=== PATIENT | female | born 1965 | race Caucasian/White ===

== ENCOUNTER 2024-02-22 16:09 | Emergency (ER) | payer OTHER ==
--- OUTSIDE RECORDS SUMMARY | 2024-02-22 16:12 | XMS REPORT | Continuity of Care Document ---
Author Name Unknown Address [address] [place] [address] thconnect Address [address] [place] [address] [address] [place] [address] Care Team Providers Care [employer] Justice Name Role Phone Unavailable Unavailable Unavailable Encounters Start Date/Time End Date/Time Encounter Type Admission Type Attending Clinicians Care Facility Care Department Encounter ID Source 2022-06-17 11:32:02 2022-06-17 11:32:02 Outpatient [facility] [id number]
[2024-02-22 17:13] LABS: Absolute Lymphocytes (CBC) 1.1 K/uL (0.7-4.9); Absolute Monocytes 0.7 K/uL (0.1-1.3); Absolute Neutrophil 16.1 K/uL (1.8-8.0); Basophils % 0.1 % (0-1.3); Hematocrit 40.3 % (36.0-45.0); Hemoglobin 13.6 g/dL (12.0-15.0); Lymphocytes % 6.3 % (15.3-44.8); MCH 30.7 pg (27.0-35.0); MCHC 33.8 g/dL (32.0-36.0); MCV 90.9 fL (80-100); MPV 8.2 fL (7.6-11.3); Monocytes % 3.9 % (3.3-12.3); Neutrophils % 89.7 % (41.7-73.7); Platelets 343 thou/uL (152-406); RBC Red Blood Cell Count 4.43 M/uL (3.86-4.86); Red Cell Distribution Width 14.4 % (12.1-15.2)
[2024-02-22 17:19] LABS: Anion Gap 12.1 mEq/L (5.0-15.0); Potassium 3.1 mEq/L (3.5-5.1); Troponin High Sensitivity 9.7 pg/mL (<58.9)
[2024-02-22 17:37] LABS: Blood Morphology Comment NOT SEEN (NOT SEEN); Platelet Estimate ADEQ; White Blood Cell Scan OK (OK)
[2024-02-22] MEDS ORDERED: ALBUTEROL 2.5 MG/3 ML NEB SOL ONE (17:59)
--- NOTE | 2024-02-22 18:37 | RAD REPORT ---
EXAM DESCRIPTION: CT - Chest For Pe Angio - 02/22/2024 5:46 pm CLINICAL HISTORY: shortness of breath, tachycardia COMPARISON: No comparisons TECHNIQUE: Thin axial CT images of the chest were obtained following administration of 100 mL Isovue 370 IV contrast. Multiplanar reconstructions, and maximum intensity projection reconstructions were generated and reviewed. Exam utilizes a protocol for optimal evaluation of pulmonary arterial tree. All CT scans are performed using dose optimization technique as appropriate and may include automated exposure control or mA/KV adjustment according to patient size. FINDINGS: Pulmonary arteries are normal. No emboli or other suspicious finding. No acute or signific ant aorta findings. No mass or infiltrate in the lung parenchyma. No pleural thickening or pleural effusion. No pneumotho rax. No abnormal mediastinal or hilar masses or lymphadenopathy seen. No chest wall mass or abnormal axill iary lymphadenopathy. IMPRESSION: No evidence of acute central pulmonary emboli. Negative CT scan of the chest for other significant findings.
--- NOTE | 2024-02-22 18:54 | EDPHYS ---
Physician Documentation [facility] Name: Tanya Theodore Age: 58 yrs Sex: Female : 1965 Arrival Date: 02/22/2024 Time: 16:09 Bed 20 Private MD: ED Physician Jeremy Gates HPI: 02/21 16:31 This 58 yrs old Female presents to ER via Ambulatory with complaints of COVID positive, ms3 Shortness Of Breath. 16:31 58-year-old female with past medical history of ADD/ADHD, back spasm presents to the [facility] emergency department shortness of breath that began yesterday. Patient states she took a home COVID test that was positive. Patient was called and cough medication, steroids, alprazolam by her primary care physician, Dr. Clark. Patient denies any alleviating or inciting factors. Patient endorses fatigue. Historical: - Allergies: 16:26 PENICILLINS; as6 - PMHx: 16:26 ADD/ADHD; back spasms; as6 - PSHx: 16:26 None; as6 - Immunization history:: Adult Immunizations not up to date. - Infectious Disease History:: Denies. - Social history:: Smoking status: Patient denies any tobacco usage or history of. ROS: 16:31 Cardiovascular: Negative for chest pain, and palpitations. ms3 16:31 Abdomen/GI: Negative for abdominal pain, nausea, vomiting, diarrhea, and constipation, MS/Extremity: Negative for injury and deformity, Skin: Negative for injury, rash, and discoloration, 16:31 Constitutional: Positive for body aches, 16:31 Respiratory: Positive for shortness of breath, Exam: 16:31 Constitutional: This is a well developed, well nourished patient who is awake, alert, ms3 and in no acute distress. Head/Face: Normocephalic, atraumatic. Respiratory: Lungs have equal breath sounds bilaterally, clear to auscultation and percussion. No rales, rhonchi or wheezes noted. No increased work of breathing, no retractions or nasal flaring. Abdomen/GI: Soft, non-tender, with normal bowel sounds. No distension or tympany. No guarding or rebound. No evidence of tenderness throughout. Skin: Warm, dry with normal turgor. Normal color with no rashes, no lesions, and no evidence of cellulitis. 16:31 Cardiovascular: Rate: tachycardic, Rhythm: regular, Pulses: no pulse deficits are appreciated, 17:04 ECG was reviewed by the Attending Physician. ms3 Vital Signs: 16:25 BP 127 / 91; Pulse 116; Resp 18; Temp 98.1; Pulse Ox 96% ; Weight 61.23 kg; Height 5 as6 ft. 4 in. ; Pain 7/10; 17:28 BP 129 / 82; Pulse 94; Resp 17; Pulse Ox 98% on R/A; rs5 19:01 BP 133 / 81; Pulse 91; Resp 17; Pulse Ox 99% on R/A; rs5 16:25 Body Mass Index 23.17 (61.23 kg, 162.56 cm) as6 16:25 Pain Scale: Adult as6 MDM: 16:24 Patient medically screened. ms3 16:31 Differential diagnosis: Anxiety Reaction Myocardial Infarction pneumonia, pulmonary ms3 edema. 18:54 Data reviewed: vital signs, nurses notes, lab test result(s), EKG, radiologic studies, ms3 and as a result, I will discharge patient. I considered the following discharge prescriptions or medication management in the emergency department Medications were administered in the Emergency Department. See MAR. Independent interpretation of the following test(s) in the Emergency Department EKG: See my EKG interpretation above oral and maxillofacial surgery resident: rate is 92 beats/min, Rhythm is normal sinus rhythm, regular, with no ectopy, Interpretation: normal rate, normal rhythm. Counseling: I had a detailed discussion with the patient and/or guardian regarding the historical points, exam findings, and any diagnostic results supporting the discharge/admit diagnosis, lab results, radiology results, the need for outpatient follow up, to return to the emergency department if symptoms worsen or persist or if there are any questions or concerns that arise at home. Special discussion: Based on the patient's history, exam, and Dx evaluation, there is no indication for emergent intervention or inpatient Tx. It is understood by the patient/guardian that if the Sx's persist or worsen they need to return immediately for re-evaluation. ED course: Discussed labs, imaging with patient and her father. Patient states she is improved after albuterol breathing treatment. Patient given prescription for albuterol inhaler. CT PE does not reveal pulmonary embolism or pneumonia. Labs reassuring. Patient given 40 mill equivalents potassium for hypokalemia. Patient to follow-up with her primary care physician in 2 to 3 days. Patient understands and agrees with plan. All questions were answered. Return precautions discussed include worsening symptoms, or any other concerns. 02/21 16:31 Order name: Basic Metabolic Panel; Complete Time: 17:57 ms3 02/21 16:31 Order name: CBC with Diff; Complete Time: 17:57 ms3 02/21 16:31 Order name: Troponin HS; Complete Time: 17:57 ms3 12 17:37 Order name: CBC Smear Scan; Complete Time: 17:57 EDMS 06 16:31 Order name: CT Chest For PE Angio; Complete Time: 18:50 ms3 02/21 16:31 Order name: EKG; Complete Time: 16:31 ms3 02/21 16:31 Order name: Cardiac monitoring; Complete Time: 16:52 ms3 02/21 16:31 Order name: EKG - Nurse/Tech; Complete Time: 16:52 ms3 02/21 16:31 Order name: IV Saline Lock; Complete Time: 16:52 ms3 02/21 16:31 Order name: Labs collected and sent; Complete Time: 16:52 ms3 02/21 16:31 Order name: O2 Per Protocol; Complete Time: 16:52 ms3 02/21 16:31 Order name: O2 Sat Monitoring; Complete Time: 16:52 ms3 EC:04 Rate is 108 beats/min. Rhythm is regular. QRS Nicholson is Normal. OH interval is normal. ms3 QRS interval is normal. Clinical impression: Sinus tachycardia. Interpreted by me. Reviewed by me. Administered Medications: 18:00 Drug: Albuterol Inhalation 2.5 mg Inhalation every 20 minutes x3 Route: Inhalation; rs5 18:20 Drug: Albuterol Inhalation 2.5 mg Inhalation every 20 minutes x3 Route: Inhalation; rs5 18:56 Drug: Albuterol Inhalation 2.5 mg Inhalation every 20 minutes x3 Route: Inhalation; rs5 19:02 Follow up: Response: No adverse reaction rs5 19:09 Drug: Potassium Chloride PO Liquid 40 mEq PO once Route: PO; rs5 Disposition Summary: 02/22/24 18:54 Discharge Ordered Notes: Location: Home ms3 Condition: Stable ms3 Diagnosis - SARS-associated coronavirus as the cause of diseases classified elsewhere ms3 - Shortness of breath ms3 Followup: ms3 - With: Private Physician - When: 2 - 3 days - Reason: Recheck today's complaints Discharge Instructions: - Discharge Summary Sheet ms3 - COVID-19 ms3 Forms: - Medication Reconciliation Form ms3 - Antibiotic Education ms3 - Prescription Opioid Use ms3 - Patient Portal Instructions ms3 - Leadership Thank You Letter ms3 Prescriptions: - albuterol sulfate 90 mcg/actuation Inhalation HFA Aerosol Inhaler - inhale 2 inhalation INHALATION route every 2 hours as needed for bronchospasm; ms3 administer via ventilator; 1 unit; Refills: 0, Product Selection Permitted Signatures: Dispatcher [employer] EDMS Jeremy Gates DO DO ms3 Jarad Valderrama RN RN as6 Tarun Cortes RN RN rs5 Corrections: (The following items were deleted from the chart) 16:27 16:26 Allergies: No Known Allergies; as6 as6
--- NOTE | 2024-02-22 18:54 | ER ---
Nurse's Notes [facility] Name: Tanya Theodore Age: 58 yrs Sex: Female : 1965 Arrival Date: 02/22/2024 Time: 16:09 Bed 20 Private MD: Diagnosis: SARS-associated coronavirus as the cause of diseases classified elsewhere;Shortness of breath Presentation: 02/21 16:25 Chief complaint: Patient states: pt tested positive for COVID yesterday and is having as6 difficulty breathing. Coronavirus screen: At this time, the client does not indicate any symptoms associated with coronavirus-19. Ebola Screen: No symptoms or risks identified at this time. Initial Sepsis Screen: Does the patient meet any 2 criteria? No. Patient's initial sepsis screen is negative. Does the patient have a suspected source of infection? No. Patient's initial sepsis screen is negative. Risk Assessment: Do you want to hurt yourself or someone else? Patient reports no desire to harm self or others. Onset of symptoms was February 22, 2024. 16:25 Method Of Arrival: Ambulatory as6 16:25 Acuity: BEATA 3 as6 Triage Assessment: 16:20 General: Appears in no apparent distress. uncomfortable, Behavior is calm, cooperative. rs5 Respiratory: Reports. Respiratory: Reports shortness of breath cough that is Onset: The symptoms/episode began/occurred yesterday, the patient has mild shortness of breath. Historical: - Allergies: 16:26 PENICILLINS; as6 - PMHx: 16:26 ADD/ADHD; back spasms; as6 - PSHx: 16:26 None; as6 - Immunization history:: Adult Immunizations not up to date. - Infectious Disease History:: Denies. - Social history:: Smoking status: Patient denies any tobacco usage or history of. Screenin:20 [facility] ED Fall Risk Assessment (Adult) History of falling in the last 3 months, rs5 including since admission No falls in past 3 months (0 pts) Confusion or Disorientation No (0 pts) Intoxicated or Sedated No (0 pts) Impaired Gait No (0 pts) Mobility Assist Device Used No (0 pt) Altered Elimination No (0 pt) Score/Fall Risk Level 0 - 2 = Low Risk Oriented to surroundings, Maintained a safe environment. Abuse screen: Denies threats or abuse. Nutritional screening: No deficits noted. Tuberculosis screening: No symptoms or risk factors identified. Assessment: 16:20 General: Appears in no apparent distress. uncomfortable, Behavior is calm, cooperative. rs5 Pain: Complains of pain in chest Pain currently is 2 out of 10 on a pain scale. Quality of pain is described as aching, Aggravated by coughing. Neuro: Level of Consciousness is awake, alert, obeys commands, Oriented to person, place, time, situation. Cardiovascular: Patient's skin is warm and dry. Rhythm is regular. Respiratory: Reports shortness of breath cough that is Airway is patent Respiratory effort is even, unlabored, Respiratory pattern is regular, symmetrical, GI: Abdomen is round non-distended, Abd is soft and non tender X 4 quads. : No signs and/or symptoms were reported regarding the genitourinary system. EENT: No signs and/or symptoms were reported regarding the EENT system. Derm: Skin is intact, Skin is pink, warm \T\ dry. Musculoskeletal: Range of motion: intact in all extremities. 17:28 Reassessment: No changes from previously documented assessment. rs5 18:38 Reassessment: Patient and/or family updated on plan of care and expected duration. Pain rs5 level reassessed. Patient is alert, oriented x 3, equal unlabored respirations, skin warm/dry/pink. Patient states feeling better. Vital Signs: 16:25 BP 127 / 91; Pulse 116; Resp 18; Temp 98.1; Pulse Ox 96% ; Weight 61.23 kg; Height 5 as6 ft. 4 in. ; Pain 7/10; 17:28 BP 129 / 82; Pulse 94; Resp 17; Pulse Ox 98% on R/A; rs5 19:01 BP 133 / 81; Pulse 91; Resp 17; Pulse Ox 99% on R/A; rs5 16:25 Body Mass Index 23.17 (61.23 kg, 162.56 cm) as6 16:25 Pain Scale: Adult as6 ED Course: 16:13 Patient arrived in ED. im 16:17 Jeremy Gates DO is Attending Physician. ms3 16:20 Patient has correct armband on for positive identification. Placed in gown. Bed in low rs5 position. Call light in reach. Side rails up X2. 16:20 No provider procedures requiring assistance completed. rs5 16:25 Inserted saline lock: 20 gauge in right antecubital area, using aseptic technique. rs5 Blood collected. 16:26 Triage completed. as6 16:27 Arm band placed on. as6 17:26 Tarun Cortes, RN is Primary Nurse. rs5 17:48 CT Chest For PE Angio In Process Unspecified. EDMS 19:10 Provided Education on: prescription meds. tm6 19:10 IV discontinued, intact, bleeding controlled, No redness/swelling at site. Pressure tm6 dressing applied. Administered Medications: 18:00 Drug: Albuterol Inhalation 2.5 mg Inhalation every 20 minutes x3 Route: Inhalation; rs5 18:20 Drug: Albuterol Inhalation 2.5 mg Inhalation every 20 minutes x3 Route: Inhalation; rs5 18:56 Drug: Albuterol Inhalation 2.5 mg Inhalation every 20 minutes x3 Route: Inhalation; rs5 19:02 Follow up: Response: No adverse reaction rs5 19:09 Drug: Potassium Chloride PO Liquid 40 mEq PO once Route: PO; rs5 Medication: 17:29 VIS not applicable for this client. rs5 Outcome: 18:54 Discharge ordered by MD. ms3 19:09 Discharged to home ambulatory, tm6 19:09 Condition: stable 19:09 Discharge instructions given to patient, Instructed on discharge instructions, follow up and referral plans. medication usage, Demonstrated understanding of instructions, follow-up care, medications, Prescriptions given X 1, 19:10 Patient left the ED. tm6 Signatures: Dispatcher [employer] EDTX Jeremy Gates DO DO ms3 Jarad Valderrama RN RN as6 Tarun Cortes, RN RN rs5 Johanny Guo Tawney, RN RN tm6 Corrections: (The following items were deleted from the chart) 16:27 16:26 Allergies: No Known Allergies; as6 as6 17:30 16:20 Respiratory: Airway is patent Respiratory effort is even, unlabored, Respiratory rs5 pattern is regular, symmetrical, rs5
[2024-02-22] MEDS ORDERED: POTASSIUM CL SA 10 MEQ TAB PO ONE (19:06)
[2024-02-22 19:26] VITALS: BP 133/81; TEMP 98.1; O2SAT 99
--- NOTE | 2024-02-27 15:11 | EKG ---
Test Date: 2024-02-22 Test Time: 16:49:08 Circus Rider: BARBARA MEASUREMENT RESULTS: Intervals: Rate: 108 AR: 166 QRSD: 82 QT: 358 QTc: 479 Hiram: P: 115 AR: 166 QRS: 61 T: 28 INTERPRETIVE STATEMENTS: Sinus tachycardia Septal infarct, age undetermined Abnormal ECG Compared to ECG 08/16/2006 15:33:24 ST (T wave) deviation no longer present Possible ischemia no longer present Myocardial infarct finding still present Electronically Signed On 02-27-24 14:56:58 CDT by Mario Brar
== END 2024-02-22 19:10 | disposition home or self-care (01) ==
LOC: ER 16:09
DX: U07.1 COVID-19 (principal)
CPT/HCPCS: 93005; 85025; 80048; 36415; 84484; 71275; 99284; Q9967; J7613

== ENCOUNTER 2024-02-23 21:08 | Emergency (ER) | payer OTHER ==
--- OUTSIDE RECORDS SUMMARY | 2024-02-23 21:11 | XMS REPORT | Continuity of Care Document ---
Author Name Unknown Address [address] [place] [address] thconnect Address [address] [place] [address] [address] [place] [address] Care Team Providers Care Biology Lecturer Name Role Phone Unavailable Unavailable Unavailable Encounters Start Date/Time End Date/Time Encounter Type Admission Type Attending Clinicians Care Facility Care Department Encounter ID Source 2022-06-17 11:32:02 2022-06-17 11:32:02 Outpatient [facility] [id number]
--- NOTE | 2024-02-23 22:17 | RAD REPORT ---
EXAM DESCRIPTION: [place] Single View02/23/2024 9:40 pm CLINICAL HISTORY: CHEST PAIN COMPARISON: No comparisons TECHNIQUE: Portable AP view of the chest. FINDINGS: The lungs are clear. No pneumothorax or effusion. The cardiomediastinal contours are unre markable. IMPRESSION: No acute cardiopulmonary process.
[2024-02-23] MEDS ORDERED: PROMETHAZINE 25 MG TABLET ONE (22:24)
[2024-02-23] MEDS ORDERED: GUAIFENESIN/DM 5 ML UCUP ONE (22:25)
[2024-02-23] MEDS ORDERED: HYDROCODONE/APAP 10/325 TAB ONE (22:25)
[2024-02-23] MEDS ORDERED: BENZONATATE 100 MG CAP PO ONE (22:25)
[2024-02-23] MEDS ORDERED: ALBUTEROL 2.5 MG/3 ML NEB SOL ONE (22:30)
[2024-02-23] MEDS ORDERED: IPRATROPIUM BROM 0.5MG/2.5ML ONE (22:30)
[2024-02-23 22:35] LABS: Absolute Lymphocytes (CBC) 2.3 K/uL (0.7-4.9); Absolute Monocytes 1.1 K/uL (0.1-1.3); Absolute Neutrophil 11.2 K/uL (1.8-8.0); Basophils % 0.3 % (0-1.3); Eosinophils % 0.1 % (0-4.4); Hematocrit 38.4 % (36.0-45.0); Hemoglobin 12.8 g/dL (12.0-15.0); Lymphocytes % 15.4 % (15.3-44.8); MCH 30.7 pg (27.0-35.0); MCHC 33.4 g/dL (32.0-36.0); MCV 91.8 fL (80-100); Monocytes % 7.7 % (3.3-12.3); Neutrophils % 76.5 % (41.7-73.7); Nucleated Red Blood Cells % 0.1 % (0-0); Platelets 315 thou/uL (152-406); RBC Red Blood Cell Count 4.19 M/uL (3.86-4.86); Red Cell Distribution Width 14.3 % (12.1-15.2)
[2024-02-23 22:49] LABS: ALT/SGPT 108 U/L (13-56); AST/SGOT 171 U/L (15-37); Albumin 3.2 g/dL (3.4-5.0); Alkaline Phosphatase 73 U/L (45-117); Anion Gap 11.6 mEq/L (5.0-15.0); BUN Blood Urea Nitrogen 18 mg/dL (7-18); Bicarbonate 26 mEq/L (21-32); Bilirubin Total 0.4 mg/dL (0.2-1.0); Globulin 3.2 g/dL (2.3-3.5); Glomerular Filtration Rate 86 ml/min (=/>90); Glucose Level 93 mg/dL (74-106); Potassium 3.6 mEq/L (3.5-5.1); Protein, Total 6.4 g/dL (6.4-8.2); Sodium Level 142 mEq/L (136-145); Troponin High Sensitivity 8.9 pg/mL (<58.9)
[2024-02-23 22:58] LABS: Bilirubin Direct < 0.2 mg/dL (0-0.2); Bilirubin Indirect, Calculated 0.2 mg/dL (0.2-0.8)
--- NOTE | 2024-02-24 00:12 | EDPHYS ---
Physician Documentation [facility] Name: Tanya Theodore Age: 58 yrs Sex: Female : 1965 Arrival Date: 02/23/2024 Time: 21:08 Bed 14 Private MD: ED Physician Franky Montero HPI: 02/22 21:16 This 58 yrs old Female presents to ER via Unassigned with complaints of COVID sp4 POSTIVE, Breathing Difficulty, Fever. 02/23 04:19 58 year old female presents with complaint of chest discomfort, pleuritic chest pain sp4 back pain shortness of breath cough. Patient was here yesterday and was evaluated for acute COVID-related respiratory illness. Patient was prescribed as needed albuterol she also reports her primary physician prescribed a Z-Itz and p.o. Medrol Dosepak.. 04:22 CT report review from 02/22/2024 - EXAM DESCRIPTION: CT - Chest For Pe Angio - sp4 02/22/2024 5:46 pm CLINICAL HISTORY: shortness of breath, tachycardia COMPARISON: No comparisons TECHNIQUE: Thin axial CT images of the chest were obtained following administration of 100 mL Isovue 370 IV contrast. Multiplanar reconstructions, and maximum intensity projection reconstructions were generated and reviewed. Exam utilizes a protocol for optimal evaluation of pulmonary arterial tree. All CT scans are performed using dose optimization technique as appropriate and may include automated exposure control or mA/KV adjustment according to patient size. FINDINGS: Pulmonary arteries are normal. No emboli or other suspicious finding. No acute or significant aorta findings. No mass or infiltrate in the lung parenchyma. No pleural thickening or pleural effusion. No pneumothorax. No abnormal mediastinal or hilar masses or lymphadenopathy seen. No chest wall mass or abnormal axilliary lymphadenopathy. IMPRESSION: No evidence of acute central pulmonary emboli. Negative CT scan of the chest for other significant findings. Signed By: Nahum Woods Signed AT: 02/22/24 . Historical: - Allergies: 02/22 21:30 PENICILLINS; as6 - PMHx: 21:30 ADD/ADHD; back spasms; as6 - Immunization history:: Adult Immunizations up to date. - Infectious Disease History:: Denies. - Social history:: Smoking status: Patient denies any tobacco usage or history of. - Family history:: not pertinent. ROS: 02/23 04:23 Constitutional: Negative for fever, chills, and weight loss, Positive for Dyspnea, sp4 cough, pleuritic chest pain All other systems are negative, Exam: 04:23 Constitutional: This is a well developed, well nourished patient who is awake, alert, sp4 and in no acute distress. Head/Face: Normocephalic, atraumatic. Eyes: Pupils equal round and reactive to light, extra-ocular motions intact. Lids and lashes normal. Conjunctiva and sclera are not injected. Cornea within normal limits. Periorbital areas with no swelling, redness, or edema. ENT: Nares patent. No nasal discharge, no septal abnormalities noted. Tympanic membranes are normal and external auditory canals are clear. Oropharynx with no redness, swelling, or masses, exudates, or evidence of obstruction, uvula midline. Mucous membranes moist. Neck: Trachea midline, no thyromegaly or masses palpated, and no cervical lymphadenopathy. Supple, full range of motion without nuchal rigidity, or vertebral point tenderness. Chest/axilla: Normal chest wall appearance and motion. Nontender with no deformity. No lesions are appreciated. Cardiovascular: Regular rate and rhythm with a normal S1 and S2. No gallops, murmurs, or rubs. Normal PMI, no JVD. No pulse deficits. Respiratory: Lungs have equal breath sounds bilaterally, clear to auscultation and percussion. No rales, rhonchi or wheezes noted. No increased work of breathing, no retractions or nasal flaring. Abdomen/GI: Soft, with normal bowel sounds. No distension or tympany. No guarding or rebound. No evidence of tenderness throughout. Back: No spinal tenderness. No costovertebral tenderness. Skin: Warm, dry with normal turgor. Normal color with no rashes, no lesions, and no evidence of cellulitis. MS/ Extremity: Pulses equal, no cyanosis. Neurovascular intact. Full, normal range of motion. Neuro: Awake and alert, GCS 15, oriented to person, place, time, and situation. Cranial nerves II-XII grossly intact. Motor strength 5/5 in all extremities. Sensory grossly intact. Psych: Awake, alert, with orientation to person, place and time. Behavior, mood, and affect are within normal limits Vital Signs: 02/22 21:29 BP 145 / 85; Pulse 109; Resp 20; Temp 97.4; Pulse Ox 97% ; Weight 61.23 kg; Height 5 as6 ft. 4 in. ; Pain 9/10; 22:15 BP 128 / 84; Pulse 105; Resp 20; Pulse Ox 98% on R/A; pc2 23:00 BP 116 / 74; Pulse 105; Resp 22; Pulse Ox 99% ; pc2 21:29 Body Mass Index 23.17 (61.23 kg, 162.56 cm) as6 21:29 Pain Scale: Adult as6 [place] Coma Score: 02/23 04:23 Eye Response: spontaneous(4). Motor Response: obeys commands(6). Verbal Response: sp4 oriented(5). Total: 15. MDM: 02/22 21:17 Patient medically screened. sp4 02/23 04:26 Differential diagnosis: Anemia asthma, Bronchitis Chronic Obstructive Pulmonary Disease sp4 pneumonia. Data reviewed: vital signs, nurses notes. ED course: Stable for discharge, Informed discharge provided . 02/22 21:27 Order name: Basic Metabolic Panel; Complete Time: 00:10 4 02/22 21:27 Order name: CBC with Diff; Complete Time: 00:10 4 02/22 21:27 Order name: LFT's; Complete Time: 00: 4 02/22 21:27 Order name: Troponin HS; Complete Time: 00: 4 02/22 21:27 Order name: Chest Single View XRAY; Complete Time: 00: 4 02/22 21:27 Order name: Cardiac monitoring; Complete Time: 22:28 4 02/22 21:27 Order name: EKG - Nurse/Tech; Complete Time: 22:28 4 02/22 21:27 Order name: IV Saline Lock; Complete Time: 22:28 4 02/22 21:27 Order name: Labs collected and sent; Complete Time: 22:28 4 02/22 21:27 Order name: O2 Per Protocol; Complete Time: 22:28 4 02/22 21:27 Order name: O2 Sat Monitoring; Complete Time: 22:28 sp4 Administered Medications: 02/22 22:25 Drug: DuoNeb Nebulize (3:1) (2.5 mg - 0.5 mg) 3 ml Nebulizer once Route: Nebulizer; pc2 23:00 Follow up: Response: No adverse reaction; Marked relief of symptoms pc2 22:25 Drug: Sk[place]more PO 10 mg-325 mg 1 tabs PO once Route: PO; pc2 23:00 Follow up: Response: No adverse reaction; Marked relief of symptoms; Pain is decreased; pc2 RASS: Alert and Calm (0) 22:25 Drug: Tessalon Perle PO 200 mg PO once Route: PO; pc2 23:00 Follow up: Response: No adverse reaction pc2 22:25 Drug: Dextromethorphan-Guaifenesin PO Liquid 10 mg-100 mg/5 mL 10 ml PO once Route: PO; pc2 23:00 Follow up: Response: No adverse reaction pc2 22:25 Drug: Promethazine PO 25 mg PO once Route: PO; pc2 23:00 Follow up: Response: No adverse reaction; RASS: Alert and Calm (0) pc2 Disposition Summary: 02/24/24 00:11 Discharge Ordered Notes: Location: Home sp4 Problem: new sp4 Symptoms: have improved sp4 Condition: Stable sp4 Diagnosis - Acute systemic viral illness, acute COVID-19 , Cough , Dyspnea , Fever sp4 Followup: sp4 - With: Private Physician - When: 7 - 10 days - Reason: Recheck today's complaints Discharge Instructions: - Discharge Summary Sheet sp4 - COVID-19 sp4 Signatures: Dispatcher [employer] Jarad Guy RN RN as6 Franky Montero MD MD sp4 Alicia bui RN RN pc2 Corrections: (The following items were deleted from the chart) 02/23 04:23 04:19 58 year old female presents with complaint of chest discomfort, pleuritic chest sp4 pain back pain shortness of breath cough.. sp4 04:23 04:19 58 year old female presents with complaint of chest discomfort, pleuritic chest sp4 pain back pain shortness of breath cough. Patient was here yesterday and was evaluated for acute COVID-related respiratory illness.. sp4
--- NOTE | 2024-02-24 00:12 | ER ---
Nurse's Notes [facility] Name: Tanya Theodore Age: 58 yrs Sex: Female : 1965 Arrival Date: 02/23/2024 Time: 21:08 Bed 14 Private MD: Diagnosis: Acute systemic viral illness, acute COVID-19 , Cough , Dyspnea , Fever Presentation: 02/22 21:29 Chief complaint: Patient states: pt has COVID and doesn't feel well. Coronavirus as6 screen: At this time, the client does not indicate any symptoms associated with coronavirus-19. Ebola Screen: No symptoms or risks identified at this time. Initial Sepsis Screen: Does the patient meet any 2 criteria? No. Patient's initial sepsis screen is negative. Does the patient have a suspected source of infection? No. Patient's initial sepsis screen is negative. Risk Assessment: Do you want to hurt yourself or someone else? Patient reports no desire to harm self or others. Onset of symptoms was February 20, 2024. 21:29 Method Of Arrival: Ambulatory as6 21:29 Acuity: BEATA 3 as6 Triage Assessment: 22:39 Respiratory: the patient has moderate shortness of breath. pc2 Historical: - Allergies: 21:30 PENICILLINS; as6 - PMHx: 21:30 ADD/ADHD; back spasms; as6 - Immunization history:: Adult Immunizations up to date. - Infectious Disease History:: Denies. - Social history:: Smoking status: Patient denies any tobacco usage or history of. - Family history:: not pertinent. Screenin:48 [facility] ED Fall Risk Assessment (Adult) History of falling in the last 3 months, pc2 including since admission No falls in past 3 months (0 pts). Abuse screen: Denies threats or abuse. Denies injuries from another. Nutritional screening: No deficits noted. Tuberculosis screening: No symptoms or risk factors identified. Assessment: 22:39 General: Appears well groomed, Behavior is calm, cooperative, appropriate for age. pc2 General: Reports chills for feeling ill for fatigue for. Pain: Complains of pain in back Pain began 2-3 days ago. Neuro: Level of Consciousness is awake, alert, Oriented to person, place, time, situation, Appropriate for age. Cardiovascular: Patient's skin is warm and dry. Rhythm is sinus tachycardia. Respiratory: Reports shortness of breath on exertion cough that is non-productive, Airway is patent Respiratory effort is even, "panting" Respiratory pattern is symmetrical, GI: No signs and/or symptoms were reported involving the gastrointestinal system. : No signs and/or symptoms were reported regarding the genitourinary system. EENT: Reports nasal congestion. Derm: No signs and/or symptoms reported regarding the dermatologic system. Musculoskeletal: No signs and/or symptoms reported regarding the musculoskeletal system. Musculoskeletal: Circulation, motion, and sensation intact. Capillary refill < 3 seconds, Range of motion: intact in all extremities, Reports pain in back. 23:05 Reassessment: Patient and/or family updated on plan of care and expected duration. Pain pc2 level reassessed. Patient states feeling better. Patient states symptoms have improved. 23:40 Reassessment: Pt self removed IV and left facility without notifying staff. Dr. jarrod Montero made aware. Vital Signs: 21:29 BP 145 / 85; Pulse 109; Resp 20; Temp 97.4; Pulse Ox 97% ; Weight 61.23 kg; Height 5 as6 ft. 4 in. ; Pain 9/10; 22:15 BP 128 / 84; Pulse 105; Resp 20; Pulse Ox 98% on R/A; pc2 23:00 BP 116 / 74; Pulse 105; Resp 22; Pulse Ox 99% ; pc2 21:29 Body Mass Index 23.17 (61.23 kg, 162.56 cm) as6 21:29 Pain Scale: Adult as6 [place] Coma Score: 0614 04:23 Eye Response: spontaneous(4). Motor Response: obeys commands(6). Verbal Response: sp4 oriented(5). Total: 15. ED Course: 02/22 21:12 Patient arrived in ED. gm2 21:16 Franky Montero MD is Attending Physician. sp4 21:30 Triage completed. as6 21:31 Arm band placed on. as6 21:42 Chest Single View XRAY In Process Unspecified. EDMS 21:52 Alicia bui, RN is Primary Nurse. pc2 22:00 Patient has correct armband on for positive identification. Bed in low position. Call pc2 light in reach. Side rails up X2. Provided Education on: plan of care. 22:15 Inserted saline lock: 20 gauge in right antecubital area, using aseptic technique. pc2 Blood collected. 22:15 EKG done, by ED staff, reviewed by Franky Montero MD. pc2 22:27 LFT's Sent. pc2 22:27 Troponin HS Sent. pc2 22:27 CBC with Diff Sent. pc2 22:27 Basic Metabolic Panel Sent. pc2 22:35 Initial Neb Treatment Given as ordered Patient was instructed and evaluated on pc2 procedure. 22:38 Basic Metabolic Panel Sent. pc2 23:14 Warm blanket given. vk 23:40 IV discontinued, bleeding controlled. pc2 02/23 00:53 No provider procedures requiring assistance completed. pc2 Administered Medications: 02/22 22:25 Drug: DuoNeb Nebulize (3:1) (2.5 mg - 0.5 mg) 3 ml Nebulizer once Route: Nebulizer; pc2 23:00 Follow up: Response: No adverse reaction; Marked relief of symptoms pc2 22:25 Drug: Kite PO 10 mg-325 mg 1 tabs PO once Route: PO; pc2 23:00 Follow up: Response: No adverse reaction; Marked relief of symptoms; Pain is decreased; pc2 RASS: Alert and Calm (0) 22:25 Drug: Tessalon Perle PO 200 mg PO once Route: PO; pc2 23:00 Follow up: Response: No adverse reaction pc2 22:25 Drug: Dextromethorphan-Guaifenesin PO Liquid 10 mg-100 mg/5 mL 10 ml PO once Route: PO; pc2 23:00 Follow up: Response: No adverse reaction pc2 22:25 Drug: Promethazine PO 25 mg PO once Route: PO; pc2 23:00 Follow up: Response: No adverse reaction; RASS: Alert and Calm (0) pc2 Medication: 22:49 VIS not applicable for this client. pc2 Outcome: 02/23 00:11 Discharge ordered by . sp4 00:11 Discharged to home ambulatory, pc2 00:11 Condition: stable pc2 00:11 Discharge instructions given to patient left prior to receiving discharge instructions. Was discovered gone at 2340. made aware 01:19 Patient left the ED. pc2 Signatures: Dispatcher [employer] EDMS Jarad Valderrama RN RN as6 Franky Montero MD MD sp4 Kamilla Sorto 2 Arlene Granados Pam, RN RN pc2 Corrections: (The following items were deleted from the chart) 02/22 22:47 22:39 : No signs and/or symptoms were reported regarding the genitourinary system. pc2pc2 02/23 01:18 00:11 Discharge instructions given to patient left prior to receiving discharge pc2 instructions. Was discovered gone at 2340 pc2
[2024-02-24 02:08] VITALS: BP 116/74; TEMP 97.4; O2SAT 99
== END 2024-02-24 01:19 | disposition home or self-care (01) ==
LOC: ER 21:08
DX: U07.1 COVID-19 (principal); B34.9 Viral infection, unspecified; R06.00 Dyspnea, unspecified; R50.9 Fever, unspecified
CPT/HCPCS: 85025; 80048; 36415; 80076; 84484; 71045; 94640; 99284; Q0169; J7613; J7644

== ENCOUNTER 2024-09-22 14:59 | Emergency (ER) | payer OTHER, SELFPAY ==
--- OUTSIDE RECORDS SUMMARY | 2024-09-22 15:02 | XMS REPORT | Continuity of Care Document ---
Author Name Unknown Address [address] [place] [address] [place] [address] thconnect Address [address] [place] [address] 1 [address] [place] [address] Care Team Providers Care Cattle Dehorner Name Role Phone Unavailable Unavailable Unavailable Encounters Start Date/Time End Date/Time Encounter Type Admission Type Attending Clinicians Care Facility Care Department Encounter ID Source 2022-06-17 11:32:02 2022-06-17 11:32:02 Outpatient [facility] [id number]
--- NOTE | 2024-09-22 16:46 | RAD REPORT ---
EXAMINATION: TWO VIEW CHEST XR CLINICAL INDICATION: Female, 58 years old. [facility] MAIN COUGH Bed Name: [facility] TECHNIQUE: 2 view radiographs of the chest were performed. COMPARISON: 02/23/2024 FINDINGS: The lungs are well inflated and clear. No pneumothorax or sizable effusion. The heart is normal in si ze. Mediastinal contours are unremarkable. IMPRESSION: No acute or significant abnormalities.
--- NOTE | 2024-09-22 17:54 | RAD REPORT ---
EXAMINATION: US Extrem Venous W Compress Gordo CLINICAL INDICATION: [facility] MAIN PAIN Bed Name: IW2 Y TECHNIQUE: Complete bilateral duplex sonography of the BILATERAL lower extremity veins was performed. The examination included compression for vein patency, color Doppler imaging and flow augmentation in response to distal compression of the distal external iliac, common femoral, femoral, popliteal, t ibial, and great and small saphenous veins. COMPARISON: No prior exam. FINDINGS: Duplex sonography testing of the veins of the BILATERAL lower extremity was performed. Color flow jennifer ging shows all veins to be compressible with [id number] color filling. Pulsatile and phasic flow is present within all lower extremity deep and superficial veins examined. IMPRESSION: There is no deep vein or superficial vein thrombosis.
--- NOTE | 2024-09-22 17:56 | RAD REPORT ---
EXAMINATION: Lower Extremity Arterial Bilat CLINICAL INDICATION: Female, 58 years old. [facility] MAIN PAIN Bed Name: 2 TECHNIQUE: Arterial duplex ultrasound of the bilateral lower extremities, with real-time, duplex, and spectral flow Doppler evaluation. COMPARISON: No prior exam. FINDINGS: Brachial artery systolic pressure is symmetric bilaterally. Grayscale: Grayscale: No significant plaque. Right lower extremity: The common femoral through dorsalis pedis arteries are patent, with triphasic waveforms. Left lower extremity: The common femoral through dorsalis pedis arteries are patent, with triphasic waveforms. IMPRESSION: No significant peripheral vascular disease. No evidence of arterial occlusion.
[2024-09-22 18:05] LABS: SARS-CoV-2 Antigen CONTROL BLUE LINE VIS/BG OK; SARS-CoV-2 Antigen Rapid Res Negative (Negative)
--- NOTE | 2024-09-22 18:17 | EDPHYS ---
Physician Documentation [facility] Name: Tanya Theodore Age: 58 yrs Sex: Female : 1965 Arrival Date: 09/22/2024 Time: 14:59 Bed 10 Private MD: ED Physician Kathryn Etienne HPI: 09/22 16:00 This 58 yrs old Female presents to ER via Ambulatory with complaints of Doesn't Feel cp Right, Fever, Leg Pain. 16:00 The patient presents with pain, that is acute. The complaints affect the right leg and cp left leg. Associated signs and symptoms: Pertinent positives: calf tenderness, fever, body aches, cough, congestion. 16:00 Onset: The symptoms/episode began/occurred 5 day(s) ago. cp 16:00 Associated signs and symptoms: Pertinent positives: shortness of breath, fever 102 at cp home. Historical: - Allergies: 15:10 PENICILLINS; ll1 - PMHx: 15:10 ADD/ADHD; back spasms; ll1 - PSHx: 15:10 section; ll1 - Immunization history:: Adult Immunizations up to date. - Infectious Disease History:: Denies. - Social history:: Smoking status: Patient denies any tobacco usage or history of. ROS: 16:02 Constitutional: Positive for body aches, Negative for fever, cp 16:02 MS/extremity: Positive for pain, of the right leg and left leg, cp 16:02 Eyes: Negative for injury, pain, redness, and discharge, cp 16:02 Cardiovascular: Negative for chest pain, edema, 16:02 Respiratory: Positive for cough, shortness of breath, 16:02 Abdomen/GI: Negative for abdominal pain, vomiting, diarrhea, constipation, 16:02 Neuro: Negative for altered mental status, 16:02 All other systems are negative, Exam: 16:05 Constitutional: The patient appears in no acute distress, alert, awake, non-toxic, well cp developed, well nourished, uncomfortable, 16:05 Head/Face: Normocephalic, atraumatic. cp 16:05 Eyes: Periorbital structures: appear normal, Conjunctiva: normal, no exudate, no injection, Sclera: no appreciated abnormality, Lids and lashes: appear normal, bilaterally, 16:05 ENT: External ear(s): are unremarkable, Nose: is normal, Mouth: Lips: moist, Oral mucosa: moist, Posterior pharynx: Airway: no evidence of obstruction, patent, erythema, that is mild, exudate, is not appreciated, 16:05 Neck: ROM/movement: Meningeal signs: are not present, nuchal rigidity, is not appreciated, 16:05 Chest/axilla: Inspection: normal, 16:05 Cardiovascular: Rate: normal, Rhythm: regular, 16:05 Respiratory: the patient does not display signs of respiratory distress, Respirations: normal, no use of accessory muscles, no retractions, labored breathing, is not present, Breath sounds: decreased breath sounds, are not appreciated, stridor, is not appreciated, wheezing: is not appreciated, 16:05 Abdomen/GI: Inspection: abdomen appears normal, Palpation: abdomen is soft and non-tender, in all quadrants, 16:05 Back: CVA tenderness, is absent, 16:05 Musculoskeletal/extremity: DVT Exam: no swelling, pain, that is mild, of the right leg, of the left leg, tenderness, that is mild, of the right leg, of the left leg, 16:05 Skin: cellulitis, is not appreciated, no rash present. Vital Signs: 15:11 BP 130 / 79; Pulse 92; Resp 18; Temp 98.6; Pulse Ox 97% on R/A; Weight 63.5 kg; Height ll1 5 ft. 4 in. ; Pain 10/10; 18:39 BP 128 / 74; Pulse 81; Resp 17 S; Pulse Ox 99% on R/A; ha1 15:11 Body Mass Index 24.03 (63.50 kg, 162.56 cm) ll1 15:11 Pain Scale: Adult ll1 MDM: 18:15 Data reviewed: vital signs, nurses notes, lab test result(s), radiologic studies, plain cp films, ultrasound, and as a result, I will discharge patient. 18:15 Differential diagnosis: bronchitis, flu, dvt. I considered the following discharge cp prescriptions or medication management in the emergency department Medications were administered in the Emergency Department. See MAR. Counseling: I had a detailed discussion with the patient and/or guardian regarding the historical points, exam findings, and any diagnostic results supporting the discharge/admit diagnosis, lab results, radiology results, to return to the emergency department if symptoms worsen or persist or if there are any questions or concerns that arise at home. 18:16 Medical Screening Exam initiated 09/22 15:41 Order name: RSV; Complete Time: 18:15 cp 09/22 15:41 Order name: SARS RAPID; Complete Time: 18:15 cp 09/22 15:41 Order name: Strep cp 09/22 18:15 Interpretation: Reviewed. 09/22 15:41 Order name: Influenza Screen (a \T\ B); Complete Time: 18:15 09/22 18:10 Order name: Throat Culture EDMS 09/22 15:41 Order name: XRAY Chest Pa And Lat (2 Views); Complete Time: 17:58 09/22 17:58 Interpretation: Report reviewed. 09/22 15:41 Order name: US Extremity Venous W Compression Gordo; Complete Time: 17:58 cp 09/22 17:58 Interpretation: Report reviewed. 09/22 15:41 Order name: US Lower Extremity Arterial Bilateral; Complete Time: 17:58 09/22 17:58 Interpretation: Report reviewed. cp Administered Medications: 18:25 Drug: Ketorolac IM 30 mg IM once Route: IM; Site: right ventrogluteal; ha1 18:39 Follow up: Response: No adverse reaction; Marked relief of symptoms; Pain is decreased ha1 18:25 Drug: Acetaminophen PO 1000 mg PO once Route: PO; ha1 18:39 Follow up: Response: No adverse reaction; Marked relief of symptoms ha1 18:25 Drug: Cyclobenzaprine PO 10 mg PO once Route: PO; ha1 18:39 Follow up: Response: No adverse reaction; Marked relief of symptoms ha1 Disposition Summary: 09/22/24 18:16 Discharge Ordered Notes: Location: Home cp Problem: new cp Symptoms: have improved cp Condition: Stable cp Diagnosis - Cough cp - Pain in left leg cp - Pain in right leg cp - Acute pharyngitis, unspecified cp Followup: cp - With: Private Physician - When: 2 - 3 days - Reason: Worsening of condition Discharge Instructions: - Discharge Summary Sheet cp - Musculoskeletal Pain cp - Sore Throat cp - Cough, Adult cp Forms: - Medication Reconciliation Form cp - Antibiotic Education cp - Prescription Opioid Use cp - Patient Portal Instructions cp - Leadership Thank You Letter cp Prescriptions: - Ibuprofen 800 mg Oral Tablet - take 1 tablet ORAL route every 8 hours As needed take with food; 30 tablet; cp Refills: 0, Product Selection Permitted - Tessalon Perles 100 mg Oral capsule - take 2 capsule ORAL route every 8 hours As needed; 30 capsule; Refills: 0, cp Product Selection Permitted - Zithromax Z-Itz 250 mg Oral Tablet - take 1 tablet ORAL route as directed for 5 days Day 1 - take two (2) tablets cp one time. Day 2, 3, 4 , 5 take one (1) tablet once daily.; 6 tablet; Refills: 0, Product Selection Permitted Signatures: Dispatcher [employer] EDMS Pedro Mueller PA PA cp Lewis, Lynsay RN RN ll1 Stephanie Tijerina RN RN ha1 Corrections: (The following items were deleted from the chart) 15:41 15:41 Extrem Venous W Compression Gordo+US.RAD.BRZ ordered. EDMS EDMS 15:41 15:41 Respiratory Syncytial Virus Ag+BA.LAB.BRZ ordered. EDMS EDMS 15:41 15:41 SARS-COV-2 Antigen Rapid+I.LAB.BRZ ordered. EDMS EDMS 15:41 15:41 Group A Streptococcus Rapid Sc+BA.LAB.BRZ ordered. EDMS EDMS 15:41 15:41 Influenza Screen (A \T\ B)+BA.LAB.BRZ ordered. EDMS EDMS
--- NOTE | 2024-09-22 18:17 | ER ---
Nurse's Notes [facility] Name: Tanya Theodore Age: 58 yrs Sex: Female : 1965 Arrival Date: 09/22/2024 Time: 14:59 Bed 10 Private MD: Diagnosis: Cough;Pain in left leg;Pain in right leg;Acute pharyngitis, unspecified Presentation: 09/22 15:11 Chief complaint: Patient states: Fever, cough, SOB, chills for 5 days. Fever up to 102 ll1 at home. Both legs hurt, swollen, tender for 2 days also. Coronavirus screen: Client denies travel out of the [place] in the last 14 days. difficulty breathing, fatigue, fever, headache, muscle pain, shortness of breath, Client presents with at least one sign or symptom that may indicate coronavirus-19. Standard/surgical mask placed on the client. Ebola Screen: Patient denies travel to an Ebola-affected area in the 21 days before illness onset. Initial Sepsis Screen: Does the patient meet any 2 criteria? No. Patient's initial sepsis screen is negative. Does the patient have a suspected source of infection? No. Patient's initial sepsis screen is negative. Risk Assessment: Do you want to hurt yourself or someone else? Patient reports no desire to harm self or others. Onset of symptoms was September 17, 2024. 15:11 Method Of Arrival: Ambulatory 1 15:11 Acuity: BEATA 3 ll1 Triage Assessment: 15:11 General: Appears uncomfortable, Behavior is calm, cooperative, appropriate for age. ll1 General: Reports chills for fever for feeling ill for fatigue for. Pain: Complains of pain in right leg and left leg Quality of pain is described as aching. Neuro: Reports weakness. Respiratory: Reports cough that is. Musculoskeletal: Reports pain in right leg and left leg. Historical: - Allergies: 15:10 PENICILLINS; ll1 - PMHx: 15:10 ADD/ADHD; back spasms; ll1 - PSHx: 15:10 section; ll1 - Immunization history:: Adult Immunizations up to date. - Infectious Disease History:: Denies. - Social history:: Smoking status: Patient denies any tobacco usage or history of. Screenin:15 [facility] ED Fall Risk Assessment (Adult) History of falling in the last 3 months, ha1 including since admission No falls in past 3 months (0 pts) Confusion or Disorientation No (0 pts) Intoxicated or Sedated No (0 pts) Impaired Gait No (0 pts) Mobility Assist Device Used No (0 pt) Altered Elimination No (0 pt) Score/Fall Risk Level 0 - 2 = Low Risk Oriented to surroundings, Maintained a safe environment, Educated pt \T\ family on fall prevention, incl call for assistance when getting out of bed, Hourly rounding (assess needs \T\ fall precautionary measures) done. Abuse screen: Denies threats or abuse. Denies injuries from another. Nutritional screening: No deficits noted. Tuberculosis screening: No symptoms or risk factors identified. Assessment: 16:53 Reassessment: Patient and/or family updated on plan of care and expected duration. Pain ll1 level reassessed. 17:00 General: Appears uncomfortable, Behavior is calm, cooperative. Pain: Complains of pain ha1 in left leg and right leg and body aches Pain does not radiate. Pain currently is 7 out of 10 on a pain scale. Quality of pain is described as aching. Neuro: Level of Consciousness is awake, alert, obeys commands, Oriented to person, place, time, situation. Cardiovascular: Capillary refill < 3 seconds Patient's skin is warm and dry. Respiratory: Airway is patent Respiratory effort is even, unlabored, Respiratory pattern is regular, symmetrical. GI: Abdomen is round non-distended. : No signs and/or symptoms were reported regarding the genitourinary system. 18:39 Reassessment: Patient and/or family updated on plan of care and expected duration. Pain ha1 level reassessed. Patient is alert, oriented x 3, equal unlabored respirations, skin warm/dry/pink. Patient states feeling better. Patient states symptoms have improved. Vital Signs: 15:11 BP 130 / 79; Pulse 92; Resp 18; Temp 98.6; Pulse Ox 97% on R/A; Weight 63.5 kg; Height ll1 5 ft. 4 in. ; Pain 10/10; 18:39 BP 128 / 74; Pulse 81; Resp 17 S; Pulse Ox 99% on R/A; ha1 15:11 Body Mass Index 24.03 (63.50 kg, 162.56 cm) ll1 15:11 Pain Scale: Adult ll1 ED Course: 15:02 Patient arrived in ED. am2 15:10 Arm band placed on. ll1 15:13 Triage completed. ll1 15:19 Pedro Mueller PA is PHCP. cp 15:19 Kathryn Etienne MD is Attending Physician. cp 16:04 XRAY Chest Pa And Lat (2 Views) In Process Unspecified. EDMS 16:48 Stephanie Tijerina, RN is Primary Nurse. ha1 16:53 Patient placed in an exam room, on a stretcher. ll1 17:00 Patient has correct armband on for positive identification. Placed in gown. Bed in low ha1 position. Call light in reach. Side rails up X 1. Adult w/ patient. 17:26 US Extremity Venous W Compression Gordo In Process Unspecified. EDMS 17:26 US Lower Extremity Arterial Bilateral In Process Unspecified. EDMS 17:39 Influenza Screen (a \T\ B) Sent. ha1 17:39 Strep Sent. ha1 17:39 SARS RAPID Sent. ha1 17:39 RSV Sent. ha1 18:15 Provided Education on: plan of care . ha1 18:40 No provider procedures requiring assistance completed. Patient did not have IV access ha1 during this emergency room visit. Administered Medications: 18:25 Drug: Ketorolac IM 30 mg IM once Route: IM; Site: right ventrogluteal; ha1 18:39 Follow up: Response: No adverse reaction; Marked relief of symptoms; Pain is decreased ha1 18:25 Drug: Acetaminophen PO 1000 mg PO once Route: PO; ha1 18:39 Follow up: Response: No adverse reaction; Marked relief of symptoms ha1 18:25 Drug: Cyclobenzaprine PO 10 mg PO once Route: PO; ha1 18:39 Follow up: Response: No adverse reaction; Marked relief of symptoms ha1 Medication: 18:40 VIS not applicable for this client. ha1 Outcome: 18:16 Discharge ordered by . cp 18:40 Discharged to home ambulatory, with family, ha1 18:40 Condition: stable 18:40 Discharge instructions given to patient, family, Instructed on discharge instructions, follow up and referral plans. medication usage, Demonstrated understanding of instructions, follow-up care, medications, Prescriptions given X 3, 18:41 Patient left the ED. ha1 Signatures: Dispatcher [employer] EDMS Pedro Mueller PA PA cp Moreno, Amanda am2 Kirstie Hendricks RN RN ll1 Stephanie Tijerina RN RN ha1 Corrections: (The following items were deleted from the chart) 15:13 15:11 Chief complaint: Patient states: Fever, cough, SOB, chills for 2 days. Fever up ll1 to 102 at home ll1 15:27 15:11 Chief complaint: Patient states: Fever, cough, SOB, chills for 5 days. Fever up ll1 to 102 at home ll1
[2024-09-22] MEDS ORDERED: KETOROLAC 30 MG/ML INJ ONE (18:29)
[2024-09-22] MEDS ORDERED: ACETAMINOPHEN 500 MG TAB ONE (18:29)
[2024-09-22] MEDS ORDERED: CYCLOBENZAPRINE 10 MG TAB ONE (18:30)
[2024-09-25 15:30] VITALS: BP 128/74; TEMP 98.6; O2SAT 99
== END 2024-09-22 18:41 | disposition home or self-care (01) ==
LOC: ER 14:59
DX: R05.9 Cough, unspecified (principal); J02.9 Acute pharyngitis, unspecified; M79.605 Pain in left leg; M79.604 Pain in right leg; Z88.0 Allergy status to penicillin; Z11.52 Encounter for screening for COVID-19
CPT/HCPCS: 36415; 71046; 87070; 87081; 87804; 87807; 87811; 93925; 93970; 96372; 99284

== ENCOUNTER 2024-11-10 10:52 | Emergency (ER) | payer OTHER ==
--- OUTSIDE RECORDS SUMMARY | 2024-11-10 10:56 | XMS REPORT | Continuity of Care Document ---
Author Name Unknown Address [address] [place] [address] [place] [address] thconnect Address [address] [place] [address] 1 [address] [place] [address] Care Team Providers Care Volleyball Player Name Role Phone Unavailable Unavailable Unavailable Encounters Start Date/Time End Date/Time Encounter Type Admission Type Attending Clinicians Care Facility Care Department Encounter ID Source 2022-06-17 11:32:02 2022-06-17 11:32:02 Outpatient [facility] [id number]
[2024-11-10] MEDS ORDERED: KETOROLAC 30 MG/ML INJ ONE (11:16)
[2024-11-10 11:25] LABS: Absolute Basophils 0.1 K/uL (0-0.5); Absolute Eosinophils 0.1 K/uL (0-0.5); Absolute Lymphocytes (CBC) 1.8 K/uL (0.7-4.9); Absolute Monocytes 0.5 K/uL (0.1-1.3); Absolute Neutrophil 3.6 K/uL (1.8-8.0); Eosinophils % 2.4 % (0-4.4); Lymphocytes % 29.3 % (15.3-44.8); MCV 85.2 fL (80-100); MPV 7.6 fL (7.6-11.3); Neutrophils % 59.3 % (41.7-73.7); Platelets 392 thou/uL (152-406); RBC Red Blood Cell Count 4.81 M/uL (3.86-4.86); Red Cell Distribution Width 13.7 % (12.1-15.2)
[2024-11-10 11:34] LABS: Specific Gravity > 1.030 (1.005-1.030); Sqamous Epithelial <5 /HPF (None Seen); Urine Bacteria <20 /HPF (<20); Urine Bilirubin NEGATIVE (Negative); Urine Blood Negative (Negative); Urine Clarity Clear (Clear); Urine Color Yellow (Yellow); Urine Culture Reflex Order NOT NEEDED; Urine Glucose NEGATIVE (Negative); Urine Ketones TRACE (Negative); Urine Micro Reflex YN NO BILL MICROSCOPIC; Urine Mucus 2+ /HPF (None Seen); Urine Nitrite NEGATIVE (Negative); Urine Protein TRACE (Negative); Urine Urobilinogen Normal (Normal); Urine WBC <5 /HPF (<5); Urine Yeast (Budding) Trace /HPF (None Seen); Urine pH 5.5 (5.0-7.0)
[2024-11-10 11:39] LABS: Anion Gap 9.4 mEq/L (5.0-15.0); Potassium 3.4 mEq/L (3.5-5.1)
[2024-11-10 11:46] LABS: Barbiturates NEGATIVE (NEGATIVE); Benzodiazepines POSITIVE (NEGATIVE); Cocaine NEGATIVE (NEGATIVE); METHAMPHETAM POSITIVE (NEGATIVE); Methadone NEGATIVE (NEGATIVE); Opiates NEGATIVE (NEGATIVE); Phencyclidine NEGATIVE (NEGATIVE); THC Cannibis NEGATIVE (NEGATIVE)
--- NOTE | 2024-11-10 11:51 | EDPHYS ---
Physician Documentation [facility] Name: Tanya Theodore Age: 59 yrs Sex: Female : 1965 Arrival Date: 11/10/2024 Time: 10:52 Bed 6 Private MD: ED Physician Ketan Medina HPI: 11/10 11:07 This 59 yrs old Female presents to ER via Unassigned with complaints of sleep ec2 problem, Back Pain. 11:08 Patient arrives today for evaluation of sleep issues. Patient reports she been having ec2 sleep disturbances for the past 6 weeks, has trouble with sleeping, states that she gets hypnagogic jerks and has difficulty sleeping subsequently. Patient also reports restless legs. Denies any falls injuries or trauma, denies any headaches. Does complain of generalized body pain as well. Denies medical problems, denies substance use. Historical: - Allergies: 11:08 PENICILLINS; ss - PMHx: 11:08 ADD/ADHD; back spasms; ss - PSHx: 11:08 section; ss - Immunization history:: Adult Immunizations unknown. - Infectious Disease History:: Denies. - Social history:: Smoking status: Patient denies any tobacco usage or history of. Patient/guardian denies using street drugs. ROS: 11:08 Constitutional: as per hpi ec2 Exam: 11:08 Constitutional: GEN: NAD Head: atraumatic Eyes: EOMI Ears: External ears are ec2 normal. CV: regular rate LUNGS: no respiratory distress ABD: non-distended SKIN: no evidence of rashes MSK: no evidence of trauma. Neuro: Cranial nerves II through XII intact, strength intact all 4 extremities. Psych: Restless individual was otherwise cooperative Vital Signs: 11:03 BP 144 / 86; Pulse 95; Resp 16; Temp 98.1(O); Pulse Ox 98% ; Weight 63.5 kg; Height 5 ss ft. 3 in. ; Pain 06/21; 11:03 Body Mass Index 24.80 (63.50 kg, 160.02 cm) ss 11:03 Pain Scale: Adult ss MDM: 10:58 Medical Screening Exam initiated ec2 11:10 Data reviewed: vital signs, nurses notes. ED course: Patient arrives today for sleeping ec2 issues as well as generalized body pain. Examination is revealing for neuro intact individual was otherwise restless. Will obtain basic lab work to evaluate for electrolyte disturbances, renal dysfunction, anemia. Additionally considered other things like substance use given the patient's restlessness, intracranial mass however patient without focal neurologic deficit and reassuring neuroexam. Accordingly we will forego CT scan of the head.. 11:49 ED course: Urine drug screen positive for benzodiazepines as well as methamphetamine, I ec2 suspect methamphetamine is contributing to the patient's poor sleep. Will discharge home have patient follow-up PCP, instructed her on amphetamine cessation. 11/10 11:06 Order name: CBC with Diff; Complete Time: 11:49 ec2 11/10 11:06 Order name: BMP; Complete Time: 11:49 ec2 11/10 11:06 Order name: UAM; Complete Time: 11:49 ec2 11/10 11:06 Order name: UDS; Complete Time: 11:49 ec2 11/10 11:06 Order name: IV; Complete Time: 11:24 ec2 Administered Medications: 11:22 Drug: Ketorolac IVP 15 mg IVP once Route: IVP; Site: right antecubital; iw 11:32 Follow up: Response: No adverse reaction iw Disposition Summary: 11/10/24 11:50 Discharge Ordered Notes: Location: Home ec2 Condition: Stable ec2 Diagnosis - Sleep related leg cramps ec2 - Sleep disorder, unspecified ec2 - Restlessness and agitation ec2 Followup: ec2 - With: Private Physician - When: - Reason: Re-evaluation by your physician Discharge Instructions: - Discharge Summary Sheet ec2 - Methamphetamines Use Disorder ec2 - Quality Sleep Information, Adult ec2 Forms: - Medication Reconciliation Form ec2 - Antibiotic Education ec2 - Prescription Opioid Use ec2 - Patient Portal Instructions ec2 - Leadership Thank You Letter ec2 Prescriptions: - gabapentin 600 mg Oral tablet - take 1 tablet ORAL route once daily at bedtime; 30 tablet; Refills: 0, Product ec2 Selection Permitted Signatures: Dispatcher [employer] Yisel Sharma RN RN iw Deepika Gilbert RN RN ss Corral, Edwin, MD MD ec2
--- NOTE | 2024-11-10 11:51 | ER ---
Nurse's Notes [facility] Name: Tanya Theodore Age: 59 yrs Sex: Female : 1965 Arrival Date: 11/10/2024 Time: 10:52 Bed 6 Private MD: Diagnosis: Sleep related leg cramps;Sleep disorder, unspecified;Restlessness and agitation Presentation: 11/10 11:03 Chief complaint: Patient states: Insomnia, shakiness and dry mouth that began 6 weeks ss ago. Coronavirus screen: Client denies travel out of the [place] in the last 14 days. Ebola Screen: Patient denies exposure to infectious person. Patient denies travel to an Ebola-affected area in the 21 days before illness onset. Initial Sepsis Screen: Does the patient meet any 2 criteria? No. Patient's initial sepsis screen is negative. Does the patient have a suspected source of infection? No. Patient's initial sepsis screen is negative. Risk Assessment: Do you want to hurt yourself or someone else? Patient reports no desire to harm self or others. Onset of symptoms was September 29, 2024. 11:03 Method Of Arrival: Ambulatory ss 11:03 Acuity: BEATA 3 ss Triage Assessment: 11:05 General: Appears in no apparent distress. Behavior is calm, cooperative. iw Musculoskeletal: Range of motion: intact in all extremities. Historical: - Allergies: 11:08 PENICILLINS; ss - PMHx: 11:08 ADD/ADHD; back spasms; ss - PSHx: 11:08 section; ss - Immunization history:: Adult Immunizations unknown. - Infectious Disease History:: Denies. - Social history:: Smoking status: Patient denies any tobacco usage or history of. Patient/guardian denies using street drugs. Screenin:08 [facility] ED Fall Risk Assessment (Adult) History of falling in the last 3 months, iw including since admission No falls in past 3 months (0 pts) Confusion or Disorientation No (0 pts) Intoxicated or Sedated No (0 pts) Impaired Gait No (0 pts) Mobility Assist Device Used No (0 pt) Altered Elimination No (0 pt) Score/Fall Risk Level 0 - 2 = Low Risk Oriented to surroundings. Abuse screen: Denies threats or abuse. Nutritional screening: No deficits noted. Tuberculosis screening: No symptoms or risk factors identified. Assessment: 11:05 General: Appears in no apparent distress. Behavior is calm, cooperative. Pain: iw Complains of pain in right leg and left leg. Neuro: Level of Consciousness is awake, alert, obeys commands, Oriented to person, place, time, situation, Moves all extremities. Full function. Cardiovascular: Patient's skin is warm and dry. Respiratory: Respiratory effort is even, unlabored, Respiratory pattern is regular, symmetrical. GI: Abdomen is non-distended. Derm: Skin is intact, is healthy with good turgor. Musculoskeletal: Range of motion: intact in all extremities. 12:08 Reassessment: Patient appears in no apparent distress at this time. Patient and/or iw family updated on plan of care and expected duration. Pain level reassessed. Patient is alert, oriented x 3, equal unlabored respirations, skin warm/dry/pink. Vital Signs: 11:03 BP 144 / 86; Pulse 95; Resp 16; Temp 98.1(O); Pulse Ox 98% ; Weight 63.5 kg; Height 5 ss ft. 3 in. ; Pain 10; 11:03 Body Mass Index 24.80 (63.50 kg, 160.02 cm) ss 11:03 Pain Scale: Adult ss ED Course: 10:56 Patient arrived in ED. sj2 10:58 Ketan Medina MD is Attending Physician. ec2 10:59 Yisel Ryan, RN is Primary Nurse. iw 11:05 Patient has correct armband on for positive identification. Provided Education on: . iw 11:08 Triage completed. ss 11:08 Arm band placed on right wrist. ss 11:24 UAM Sent. iw 11:24 UDS Sent. iw 12:08 No provider procedures requiring assistance completed. IV discontinued, intact, iw bleeding controlled, No redness/swelling at site. Pressure dressing applied. Administered Medications: 11:22 Drug: Ketorolac IVP 15 mg IVP once Route: IVP; Site: right antecubital; iw 11:32 Follow up: Response: No adverse reaction iw Medication: 11:15 VIS not applicable for this client. iw Outcome: 11:50 Discharge ordered by . ec2 12:08 Discharged to home ambulatory, with family, iw 12:08 Condition: good 12:08 Discharge instructions given to patient, family, Instructed on discharge instructions, follow up and referral plans. Demonstrated understanding of instructions, follow-up care, medications, Prescriptions given X 1, 12:08 Patient left the ED. iw Signatures: Yisel Ryan RN RN iw Blanchard, Shelby, RN RN ss Ketan Medina MD MD ec2 Marysol Orosco 2
[2024-11-10 12:12] VITALS: BP 144/86; TEMP 98.1; O2SAT 98
== END 2024-11-10 12:08 | disposition home or self-care (01) ==
LOC: ER 10:52
DX: G47.62 Sleep related leg cramps (principal); G47.9 Sleep disorder, unspecified; R45.1 Restlessness and agitation; Z88.0 Allergy status to penicillin
CPT/HCPCS: 36415; 80048; 80307; 81001; 85025

== ENCOUNTER 2024-11-17 19:55 | Emergency (ER) | payer OTHER ==
--- OUTSIDE RECORDS SUMMARY | 2024-11-17 19:57 | XMS REPORT | Continuity of Care Document ---
Author Name Unknown Address [address] [place] [id number] [facility] Address [address] [place] [address] [address] [place] [address] Care Team Providers Care Network Systems Analyst Name Role Phone Unavailable Unavailable Unavailable Encounters Start Date/Time End Date/Time Encounter Type Admission Type Attending Clinicians Care Facility Care Department Encounter ID Source 2022-06-17 11:32:02 2022-06-17 11:32:02 Outpatient [facility] [id number]
--- NOTE | 2024-11-17 20:57 | RAD REPORT ---
EXAM: Chest Single View HISTORY: 59 years Female DYSPNEA COMPARISON: 09/22/2024 FINDINGS: LUNGS/PLEURA: Low lung volumes with likely some left basilar atelectasis. CARDIAC/MEDIASTINUM: The cardiac silhouette is within normal limits. UPPER ABDOMEN: No significant abnormality. BONES: No acute abnormality. LINES/TUBES/OTHER: N/A IMPRESSION: No evidence of acute cardiopulmonary disease.
[2024-11-17 21:49] LABS: Absolute Basophils 0.1 K/uL (0-0.5); Absolute Eosinophils 0.4 K/uL (0-0.5); Absolute Lymphocytes (CBC) 1.9 K/uL (0.7-4.9); Absolute Monocytes 0.5 K/uL (0.1-1.3); Absolute Neutrophil 7.5 K/uL (1.8-8.0); Basophils % 0.5 % (0-1.3); Eosinophils % 4.2 % (0-4.4); Hematocrit 36.9 % (36.0-45.0); Hemoglobin 12.4 g/dL (12.0-15.0); Lymphocytes % 18.6 % (15.3-44.8); MCH 29.2 pg (27.0-35.0); MCHC 33.5 g/dL (32.0-36.0); MCV 87.1 fL (80-100); MPV 8.4 fL (7.6-11.3); Monocytes % 4.9 % (3.3-12.3); Neutrophils % 71.8 % (41.7-73.7); Platelets 271 thou/uL (152-406); RBC Red Blood Cell Count 4.24 M/uL (3.86-4.86); Red Cell Distribution Width 13.8 % (12.1-15.2)
[2024-11-17 21:51] LABS: ALT/SGPT 23 U/L (13-56); AST/SGOT 22 U/L (15-37); Albumin 3.3 g/dL (3.4-5.0); Alkaline Phosphatase 93 U/L (45-117); Anion Gap 11.1 mEq/L (5.0-15.0); BUN Blood Urea Nitrogen 7 mg/dL (7-18); Bicarbonate 26 mEq/L (21-32); Bilirubin Total 0.3 mg/dL (0.2-1.0); Creatine Phosphokinase 140 U/L (26-192); Globulin 3.4 g/dL (2.3-3.5); Glomerular Filtration Rate 83 ml/min (=/>90); Glucose Level 125 mg/dL (74-106); NT PRO-BNP 134 pg/mL (<125); Potassium 3.1 mEq/L (3.5-5.1); Protein, Total 6.7 g/dL (6.4-8.2); Sodium Level 143 mEq/L (136-145); Troponin High Sensitivity 3.7 pg/mL (<58.9)
[2024-11-17 21:55] LABS: Bilirubin Direct < 0.2 mg/dL (0-0.2); Bilirubin Indirect, Calculated 0.1 mg/dL (0.2-0.8)
--- NOTE | 2024-11-17 22:27 | ER ---
Nurse's Notes [facility] Name: Tanya Theodore Age: 59 yrs Sex: Female : 1965 Arrival Date: 11/17/2024 Time: 19:55 Bed 4 Private MD: Diagnosis: Altered mental status, resolved;Opioid abuse Presentation: 11/17 20:13 Chief complaint: EMS states: WAS FOUND FACEDOWN IN THE GARAGE,UNRESPONSIVE, FATHER ha1 REPORTED DRUG ABUSED OF FENTANYL. 2 mg OF NARCAN WERE GIVEN. PATIENT AOX4 NOW. REPORTS SHORTNESS OF BREATH. 20:13 Coronavirus screen: Client denies travel out of the [place] in the last 14 days. Ebola ha1 Screen: No symptoms or risks identified at this time. Initial Sepsis Screen: Does the patient meet any 2 criteria? No. Patient's initial sepsis screen is negative. Does the patient have a suspected source of infection? No. Patient's initial sepsis screen is negative. Risk Assessment: Do you want to hurt yourself or someone else? Patient reports no desire to harm self or others. Onset of symptoms was November 17, 2024. 20:13 Method Of Arrival: EMS: [facility] ha1 20:13 Acuity: BEATA 2 ha1 Historical: - Allergies: 20:33 PENICILLINS; ha1 - PMHx: 20:33 ADD/ADHD; back spasms; Drug dependence; ha1 - PSHx: 20:33 section; ha1 - Immunization history:: Adult Immunizations unknown. - Infectious Disease History:: Denies. - Social history:: Smoking status: Patient denies any tobacco usage or history of. - Family history:: not pertinent. Screenin:20 [facility] ED Fall Risk Assessment (Adult) History of falling in the last 3 months, dd2 including since admission Yes- physiologic fall (2 pts) Confusion or Disorientation No (0 pts) Intoxicated or Sedated No (0 pts) Impaired Gait No (0 pts) Mobility Assist Device Used No (0 pt) Altered Elimination No (0 pt) Score/Fall Risk Level 0 - 2 = Low Risk Oriented to surroundings, Maintained a safe environment, Educated pt \T\ family on fall prevention, incl call for assistance when getting out of bed, Assessed \T\ reinforced patient's understanding of fall precautions, Hourly rounding (assess needs \T\ fall precautionary measures) done. Abuse screen: Denies threats or abuse. Nutritional screening: No deficits noted. Tuberculosis screening: No symptoms or risk factors identified. Assessment: 21:20 General: Appears in no apparent distress. Behavior is cooperative, appropriate for age, dd2 anxious. Pain: Denies pain. Neuro: Casey Agitation-Sedation Scale (RASS): +1 Restless Level of Consciousness is awake, alert, obeys commands, Oriented to person, place, time, situation, Appropriate for age. Cardiovascular: Reports shortness of breath, Patient's skin is warm and dry. Rhythm is regular. Respiratory: Reports shortness of breath Airway is patent Respiratory effort is even, unlabored, Respiratory pattern is regular, symmetrical, Breath sounds are clear bilaterally. GI: No deficits noted. No signs and/or symptoms were reported involving the gastrointestinal system. Abdomen is non-distended, Bowel sounds present X 4 quads. Abd is soft and non tender. : No deficits noted. No signs and/or symptoms were reported regarding the genitourinary system. EENT: No deficits noted. No signs and/or symptoms were reported regarding the EENT system. Derm: No deficits noted. No signs and/or symptoms reported regarding the dermatologic system. Musculoskeletal: No deficits noted. No signs and/or symptoms reported regarding the musculoskeletal system. Circulation, motion, and sensation intact. Range of motion: intact in all extremities. Vital Signs: 20:13 BP 123 / 72; Pulse 102; Resp 24 S; Temp 97.6(T); Pulse Ox 98% on R/A; Weight 63.5 kg; ha1 Height 5 ft. 3 in. ; 22:14 BP 126 / 81; Pulse 80; Resp 18; Pulse Ox 98% ; cp4 23:00 BP 123 / 75; Pulse 84; Resp 16; Pulse Ox 98% ; dd2 20:13 Body Mass Index 24.80 (63.50 kg, 160.02 cm) ha1 Leo Coma Score: 21:20 Eye Response: spontaneous(4). Motor Response: obeys commands(6). Verbal Response: dd2 oriented(5). Total: 15. ED Course: 19:57 Patient arrived in ED. im 19:57 Chino Richards MD is Attending Physician. rt 20:33 Triage completed. ha1 20:33 Maintain EMS IV. Dressing intact. Good blood return noted. Site clean \T\ dry. Gauge \T\ buchanan 1 site: 20 GAUGE LEFT FOREARM . 20:46 HEATHER JOSHI, RN is Primary Nurse. dd2 21:07 Arm band placed on right wrist. Patient placed in an exam room, on a stretcher, on dd2 oxygen, on front desk monitor, on pulse oximetry. 21:20 No provider procedures requiring assistance completed. Oxygen administration via nasal dd2 cannula \T\ 2L/min. 21:20 Patient has correct armband on for positive identification. Bed in low position. Call dd2 light in reach. Side rails up X2. Client placed on continuous cardiac and pulse oximetry monitoring. NIBP monitoring applied. monitoring and evaluation advisor on. Door closed. Noise minimized. Warm blanket given. Pillow given. Verbal reassurance given. 22:11 EKG done, by ED staff, reviewed by Chino Richards MD. cp4 23:06 IV discontinued, intact, bleeding controlled, No redness/swelling at site. Pressure dd2 dressing applied. 23:07 Provided Education on: D/C INSTRUCTIONS. dd2 Administered Medications: 22:45 Drug: Ketorolac IVP 15 mg IVP once Route: IVP; Site: right forearm; dd2 23:07 Follow up: Response: No adverse reaction dd2 Medication: 21:20 VIS not applicable for this client. dd2 Outcome: 22:27 Discharge ordered by . rt 23:06 Discharged to home via wheelchair, with family, dd2 23:06 Condition: stable 23:06 Discharge instructions given to patient, Instructed on discharge instructions, follow up and referral plans. DRUG USE Demonstrated understanding of instructions, follow-up care, DRUG USE 23:08 Patient left the ED. dd2 Signatures: Stephanie Tijerina RN RN ha1 Chino Richards MD MD rt Johanny Guo Christina cp4 HEATHER JOSHI, JEREMÍAS RN dd2
--- NOTE | 2024-11-17 22:27 | EDPHYS ---
Physician Documentation [facility] Name: Tanya Theodore Age: 59 yrs Sex: Female : 1965 Arrival Date: 11/17/2024 Time: 19:55 Bed 4 Private MD: ED Physician Chino Richards HPI: 11/17 22:32 This 59 yrs old Female presents to ER via EMS with complaints of Altered Mental Status. rt 22:32 Patient presents to the ED with altered mental status. Patient reportedly uses rt fentanyl, family found her on the ground unresponsive, due to presumed overdose. Patient pinpoint pupils, return to baseline mental status after Narcan was given by EMS. Patient reports pain to the legs that are chronic but denies other acute complaints, symptoms are moderate severity, no other aggravating alleviating factors.. Historical: - Allergies: 20:33 PENICILLINS; ha1 - PMHx: 20:33 ADD/ADHD; back spasms; Drug dependence; ha1 - PSHx: 20:33 section; ha1 - Immunization history:: Adult Immunizations unknown. - Infectious Disease History:: Denies. - Social history:: Smoking status: Patient denies any tobacco usage or history of. - Family history:: not pertinent. ROS: 22:32 Constitutional: Negative for fever, chills, and weight loss, Cardiovascular: Negative rt for chest pain, palpitations, and edema, Respiratory: Negative for shortness of breath, cough, wheezing, and pleuritic chest pain, Abdomen/GI: Negative for abdominal pain, nausea, vomiting, diarrhea, and constipation, Skin: Negative for injury, rash, and discoloration, 22:32 Neuro: Positive for altered mental status, Negative for headache, Exam: 22:32 Constitutional: This is a well developed, well nourished patient who is awake, alert, rt and in no acute distress. Chest/axilla: Normal chest wall appearance and motion. Nontender with no deformity. No lesions are appreciated. Cardiovascular: Regular rate and rhythm with a normal S1 and S2. No gallops, murmurs, or rubs. Normal PMI, no JVD. No pulse deficits. Respiratory: Lungs have equal breath sounds bilaterally, clear to auscultation and percussion. No rales, rhonchi or wheezes noted. No increased work of breathing, no retractions or nasal flaring. Abdomen/GI: Soft, non-tender, with normal bowel sounds. No distension or tympany. No guarding or rebound. No evidence of tenderness throughout. Skin: Warm, dry with normal turgor. Normal color with no rashes, no lesions, and no evidence of cellulitis. MS/ Extremity: Pulses equal, no cyanosis. Neurovascular intact. Full, normal range of motion. Neuro: Awake and alert, GCS 15, oriented to person, place, time, and situation. Cranial nerves II-XII grossly intact. Motor strength 5/5 in all extremities. Sensory grossly intact. Cerebellar exam normal. Normal gait. 22:32 Head/face: Normocephalic, atraumatic. 22:32 ECG was reviewed by the Attending Physician. rt Vital Signs: 20:13 BP 123 / 72; Pulse 102; Resp 24 S; Temp 97.6(T); Pulse Ox 98% on R/A; Weight 63.5 kg; ha1 Height 5 ft. 3 in. ; 22:14 BP 126 / 81; Pulse 80; Resp 18; Pulse Ox 98% ; cp4 23:00 BP 123 / 75; Pulse 84; Resp 16; Pulse Ox 98% ; dd2 20:13 Body Mass Index 24.80 (63.50 kg, 160.02 cm) ha1 Leo Coma Score: 21:20 Eye Response: spontaneous(4). Motor Response: obeys commands(6). Verbal Response: dd2 oriented(5). Total: 15. MDM: 20:19 Medical Screening Exam initiated rt 22:32 Differential Diagnosis: Drug abuse, dysrhythmia. Data reviewed: vital signs, nurses rt notes, lab test result(s), EKG, radiologic studies. I considered the following discharge prescriptions or medication management in the emergency department Medications were administered in the Emergency Department. See MAR. Independent interpretation of the following test(s) in the Emergency Department X-Ray: My interpretation is No edema seen on interpretation of x-ray images. Test considered but Not performed: CT: No signs of trauma, no headache, CT scan of the head is not decayed. Care significantly affected by the following Social Determinants of Health: Misuse of alcohol and/or drugs. Counseling: I had a detailed discussion with the patient and/or guardian regarding the historical points, exam findings, and any diagnostic results supporting the discharge/admit diagnosis, lab results, radiology results, the need for outpatient follow up, to return to the emergency department if symptoms worsen or persist or if there are any questions or concerns that arise at home. Response to treatment: the patient's symptoms have markedly improved after treatment. 11/17 20:22 Order name: Basic Metabolic Panel; Complete Time: 22:23 rt 11/17 20:22 Order name: CBC with Diff; Complete Time: :23 rt 11/17 20:22 Order name: LFT's; Complete Time: :23 rt 11/17 20:22 Order name: NT PRO-BNP; Complete Time: 22:23 rt 11/17 20:22 Order name: Troponin HS; Complete Time: :23 rt 11/17 20:22 Order name: Acetaminophen; Complete Time: :23 rt 11/17 20:22 Order name: Salicylate; Complete Time: :23 rt 11/17 20:22 Order name: CPK; Complete Time: :23 rt 11/17 20:58 Order name: RAD; Complete Time: 20:58 EDMS 11/17 20:22 Order name: Cardiac monitoring; Complete Time: 21: rt 11/17 20:22 Order name: EKG - Nurse/Tech; Complete Time: 22:11 rt 11/17 20:22 Order name: IV Saline Lock; Complete Time: : rt 11/17 20:22 Order name: Labs collected and sent; Complete Time: 21: rt 11/17 20:22 Order name: O2 Per Protocol; Complete Time: : rt 11/17 20:22 Order name: O2 Sat Monitoring; Complete Time: 21: rt EC:32 Rate is 88 beats/min. Rhythm is regular, Normal Sinus Rhythm with No ectopy. QRS [place] rt is Normal. SD interval is normal. QRS interval is normal. QT interval is normal. No Q waves. No ST changes noted. Interpreted by me. Administered Medications: 22:45 Drug: Ketorolac IVP 15 mg IVP once Route: IVP; Site: right forearm; dd2 23:07 Follow up: Response: No adverse reaction dd2 Disposition Summary: 11/17/24 22:27 Discharge Ordered Notes: Location: Home rt Problem: new rt Symptoms: have improved rt Condition: Stable rt Diagnosis - Altered mental status, resolved rt - Opioid abuse rt Followup: rt - With: Private Physician - When: 2 - 3 days - Reason: Discharge Instructions: - Discharge Summary Sheet rt - Opioid Use Disorder rt Forms: - Medication Reconciliation Form rt - Antibiotic Education rt - Prescription Opioid Use rt - Patient Portal Instructions rt - Leadership Thank You Letter rt Signatures: Dispatcher [employer] EDMS Stephanie Tijerina RN RN ha1 Chino Richards MD MD rt HEATHER JOSHI RN RN dd2 Corrections: (The following items were deleted from the chart) 20:23 20:23 BASIC METABOLIC PANEL+C.LAB.BRZ ordered. EDMS EDMS 20:23 20:23 CBC+H.LAB.BRZ ordered. EDMS EDMS 20:23 20:23 HEPATIC FUNCTION+C.LAB.BRZ ordered. EDMS EDMS 20:23 20:23 PROBNP+C.LAB.BRZ ordered. EDMS EDMS 20:23 20:23 Troponin High Sensitivity+C.LAB.BRZ ordered. EDMS EDMS 20:23 20:23 ACETAMINOPHEN+C.LAB.BRZ ordered. EDMS EDMS 20:23 20:23 SALICYLATE+C.LAB.BRZ ordered. EDMS EDMS 20:23 20:23 CREATINE PHOSPHOKINASE+C.LAB.BRZ ordered. EDMS EDMS 20:23 20:23 Chest Single View+RAD.RAD.BRZ ordered. EDMS EDMS
[2024-11-17] MEDS ORDERED: KETOROLAC 30 MG/ML INJ ONE (22:46)
[2024-11-17 23:12] VITALS: TEMP 97.6; O2SAT 98
[2024-11-17 23:14] VITALS: BP 123/75
--- NOTE | 2024-11-20 11:08 | EKG ---
Test Date: 2024-11-17 Test Time: 22:08:54 County Adviser: NGUYEN MEASUREMENT RESULTS: Intervals: Rate: 88 IN: 132 QRSD: 86 QT: 386 QTc: 467 [place]: P: 61 IN: 132 QRS: 55 T: 55 INTERPRETIVE STATEMENTS: Normal sinus rhythm Septal infarct, age undetermined Abnormal ECG Compared to ECG 02/22/2024 16:49:08 Sinus tachycardia no longer present Myocardial infarct finding still present Electronically Signed On 11-20-24 11:01:48 CDT by Gianni Rose
== END 2024-11-17 23:08 | disposition home or self-care (01) ==
LOC: ER 19:55
DX: F11.10 Opioid abuse, uncomplicated (principal)
CPT/HCPCS: 36415; 71045; 80048; 80076; 80143; 80179; 82550; 83880; 84484; 85025; 93005; 96374; 99285